=== PATIENT | male | born 1990 | race Caucasian/White ===

== ENCOUNTER 2019-09-11 13:07 | Outpatient (CLI) | payer OTHER ==
[2019-09-11] MEDS ORDERED: BUFFERED LIDOCAINE 10 ML SYRINGE ONE (13:13)
[2019-09-11] MEDS ORDERED: IOTHALAMATE MEGLUMINE 50 ML VIAL ONE (13:14)
[2019-09-11] MEDS ORDERED: GADOBUTROL 7.5 MMOL/7.5 ML VIAL ONE (13:14)
[2019-09-11] MEDS ORDERED: IOTHALAMATE MEGLUMINE 50 ML VIAL IVP ONE (14:30)
[2019-09-11] MEDS ORDERED: GADOBUTROL 7.5 MMOL/7.5 ML VIAL IVP ONE (14:30)
[2019-09-11] MEDS ORDERED: BUFFERED LIDOCAINE 10 ML SYRINGE IU ONE (14:30)
--- NOTE | 2019-09-11 14:56 | XRAY Report ---
Reason: RT SHOULDER RECURRENT DISLOCATION Procedure Date: 09/11/2019 Accession Number: [id number] / [id number] Procedure: FL - Arthrogram Needle Placement CPT Code: Final Report FULL RESULT: EXAM: Arthrogram Needle Placement DATE: 09/11/2019 2:37 PM CLINICAL HISTORY: RT SHOULDER RECURRENT DISLOCATION COMPARISON: None. TECHNIQUE: The risks, benefits, and alternatives of the procedure were discussed with the patient. All questions were answered. Written and verbal consent were obtained. The glenohumeral joint was marked under fluoroscopy and prepped and draped in a sterile manner. Local anesthesia was performed with 1% lidocaine. A 22-gauge needle was then inserted into the glenohumeral joint. 10 mL of a solution containing 25% 1% lidocaine, 25% iodinated contrast, and a 1:200 dilution of gadolinium contrast in sterile saline was then injected. The needle was removed without immediate complication. Other: None. Fluoroscopic exposure time: 16 seconds Number of fluoroscopic images: 5. FINDINGS: Bones and joints: No fracture or subluxation. Injection: Fluoroscopic images demonstrate needle placement and contrast in the glenohumeral joint. No contrast extravasation outside of the glenohumeral joint. IMPRESSION: Successful fluoroscopically guided arthrographic injection of the shoulder. RADIA
--- NOTE | 2019-09-14 10:38 | MRI Report ---
Reason: RT SHOULDER RECURRENT DISLOCATION Procedure Date: 09/11/2019 Accession Number: [id number] / [id number] Procedure: MRI - Arthrogram Shoulder RT CPT Code: Final Report FULL RESULT: EXAM: RIGHT SHOULDER MRI ARTHROGRAM WITH CONTRAST EXAM DATE: 09/11/2019 03:02 PM. CLINICAL HISTORY: Right shoulder recurrent dislocation. COMPARISON: None. TECHNIQUE: Multiplanar, multisequence T1-weighted and fluid-sensitive sequences of the shoulder after an arthrographic injection of dilute gadolinium, dictated under a separate exam. Other: None. FINDINGS: Rotator cuff: Ill-defined thickening and increased intrasubstance signal involving distal anterior fibers of the supraspinatus. Partial thickness contrast filling tear at the bursal surface and insertion of the anterior supraspinatus approximately 0.8 cm in the medial to lateral and anteroposterior dimensions. No definite full-thickness contrast filling defect is identified. However, there is contrast material within the subacromial subdeltoid bursa superiorly and anteriorly. Considerations include small occult full-thickness defect versus contrast introduction during the injection procedure. No rotator cuff muscle atrophy or fatty replacement. Long head biceps tendon: Intact, demonstrating normal course, signal and morphology. Labrum: Ill-defined tear with medial stripping at the inferior and anteroinferior labrum. Full contrast-filling tear at the posterior inferior labrum. Bones and articular surfaces: There is some deformity at the anteroinferior glenoid which may reflect chronic Bankart fracture. Large Hill-Sachs impaction fracture of the humeral head demonstrates a small amount of associated marrow edema. Mild cartilage thinning and fissuring over the lower aspect of the glenoid. Acromioclavicular joint: Unremarkable. Type I acromion. IMPRESSION: 1. Partial-thickness distal bursal surface and insertional tear of the anterior supraspinatus approximately 0.8 x 0.8 cm. 2. Although no discrete contrast-filling full-thickness tear is demonstrated, there is contrast in the subacromial subdeltoid bursa indicating either presence of an occult small full-thickness defect versus introduction of contrast during the injection procedure. 3. Ill-defined tear at the anterior and inferior labrum with probable small Bankart fracture. Small amount of associated marrow edema. 4. Large Hill-Sachs impaction fracture with a small amount of associated marrow edema. These findings may indicate subacute or late subacute fractures related to anterior dislocation. RADIA
== END 2019-09-11 13:08 | disposition home or self-care (01) ==
LOC: DI 13:07
PROVIDERS: ATTEND General Practice
DX: S42.291A Other displaced fracture of upper end of right humerus, initial encounter for closed fracture (principal); M75.101 Unspecified rotator cuff tear or rupture of right shoulder, not specified as traumatic; S43.491A Other sprain of right shoulder joint, initial encounter
CPT/HCPCS: 23350; 73222; 77002; A9585; Q9961

== ENCOUNTER 2019-12-07 08:26 | Day surgery (SDC) | payer OTHER ==
[~2019-12-07 08:26] MED LIST: BUPIVACAINE 0.25% PF 30 ML VIAL ONE; EPINEPHrine 1 MG/ML AMP ONE
[2019-12-07] MEDS ORDERED: KETOROLAC 30 MG/ML VIAL IVP ONE (08:27)
[2019-12-07] MEDS ORDERED: MIDAZOLAM 2 MG/2 ML VIAL IVP ONE (08:27)
[2019-12-07] MEDS ORDERED: fentaNYL 100 MCG/2 ML VIAL IVP ONE (08:27)
[2019-12-07] MEDS ORDERED: PROPOFOL 200 MG/20 ML VIAL IVP ONE (08:27)
[2019-12-07] MEDS ORDERED: ROCURONIUM 50 MG/5 ML VIAL IVP ONE (08:27)
[2019-12-07] MEDS ORDERED: LACTATED RINGERS 1,000 ML IV ONE ×2 (08:34→11:40)
[2019-12-07] MEDS ORDERED: cefTRIAXone 2 GM VIAL ONE (09:02)
--- NOTE | 2019-12-07 09:29 | ANESTHESIA ---
Pre-Anesthesia VS, & Labs - Diagnosis Right shoulder instability, rotator cuff repair - Procedure Right shoulder arthroscopy, rotator cuff repair Vital Signs: Temp Pulse Resp BP Pulse Ox 36.3 C L 77 16 141/90 H 95 12/07/19 08:40 12/07/19 08:40 12/07/19 08:40 12/07/19 08:40 12/07/19 08:40 Height 6 ft Weight (kg) 101.9 kg - NPO >8 hours Home Medications and Allergies Home Medications: Ambulatory Orders No Known Home Medications 11/08/19 No Known Home Medications 11/08/19 Allergies/Adverse Reactions: Allergies Allergy/AdvReac Type Severity Reaction Status Date / Time No Known Drug Allergies Allergy Verified 11/08/19 12:05 Anes History & Medical History - Anesthetic History Anesthesia Complications: reports: Other-see comment (Bad experience with ketamine sedation) Family history of Anesthesia Complications: Denies Family history of Malignant Hyperthermia: Denies - Medical History Cardiovascular: reports: None Pulmonary: reports: None, Other (Suspected sleep apnea) Gastrointestinal: reports: None Urinary: reports: None Neuro: reports: None Musculoskeletal: reports: None, Other Endocrine/Autoimmune: reports: None Blood Disorders: reports: None Skin: reports: None Smoking Status: Never smoker Psychosocial: reports: No issues indicated Exam General: Alert, Oriented x3, Cooperative Dental: WNL Mouth Opening: Greater than 4 Fingerbreadths Neck Mobility: Normal Mallampati classification: I Respiratory: Lungs clear Cardiovascular: Regular rate Neurological: Normal speech Mental/Cognitive Status: Alert/Oriented X3 Cognitive Status: Within normal limits Plan Anesthesia Type: General, Interscalene Block Consent for Procedure(s) Verified and Reviewed: Yes Code Status: Attempt Resuscitation ASA classification: 2-Mild systemic disease Is this case an emergency?: No
--- NOTE | 2019-12-07 11:26 | ANESTHESIA PROCEDURE NOTE ---
Diagnosis: Right Shoulder instability and rotator cuff tear Procedure: Right interscalene block Consent for Procedure(s) Verified and Reviewed: Yes Height and Weight: Height 6 ft Weight (kg) 101.9 kg Vital Signs: Temp Pulse Resp BP Pulse Ox 36.3 C L 92 16 141/90 H 98 12/07/19 08:40 12/07/19 10:14 12/07/19 08:40 12/07/19 08:40 12/07/19 10:14 Allergies No Known Drug Allergies Allergy (Verified 11/08/19 12:05) Requesting Provider: Soraida Location: right ASA classification: 2-Mild systemic disease Is this case an emergency?: No Anes. Monitoring and Equipment: Non-invasive BP, Pulse oximetery Anes. Procedure Start Time: 10:16 Anes. Procedure Stop Time: 10:25 Procedure Notes: Patient's right neck was prepped with chloroprep and time out completed. Total of 2mg versed and 100mcg of fentanyl given IV for patient comfort. The right brachial plexus was imaged using ultrasound and a 22G blunted stimiplex needle was directed towards the nerve sheath. After adequate needle placement was confirmed, a total of 30ml of 0.5% ropivicaine with 8mg of decadron was injected around the nerve bundle. Negative aspiration and negative paresthesia. Patient tolerated to procedure well. Full evaluation is pending. Images were saved to ultrasound hard drive.
[2019-12-07] MEDS ORDERED: HYDROmorphone 1 MG/ML CARPUJECT ONE (14:46)
[2019-12-07] MEDS ORDERED: oxyCODONE 5 MG TABLET PO PRN (14:51)
[2019-12-07] MEDS ORDERED: ONDANSETRON 4 MG/2 ML VIAL IVP PRN (14:51)
--- NOTE | 2019-12-07 15:06 | OPERATIVE REPORT ---
Operative Report - General Procedure Date: 12/07/19 - Procedure Note Estimated Blood Loss (mL): 25 - Other Other Information/Narrative: Primary Surgeon: LUCY LOFTON Secondary Surgeon: ROSANA FORD Anesthesia: General plus regional EBL: 25 ml IMPLANTS: Arthrex knotless suture tack x6 DETAILED PROCEDURE: Labral repair from 3:00 anterior to 7:30 posterior POSTOPERATIVE PLAN: 0-2 weeks-Sling at all times. Pendulum exercises 5 times per day. 2-6 weeks-Passive range of motion with the following limits: FF to 90, ER to neutral, abduction to 90 6-12 weeks-Active range of motion in all planes without limitation. Isometric rotator cuff strengthening is allowed 12-16 weeks-Gradually increase strengthening 16 weeks and beyond-Introduce dynamic activities EXAMINATION UNDER ANESTHESIA: ROM: Forward flexion 180 degrees, abduction 175 degrees, abduction external rotation 85 degrees, abduction internal rotation 85 degrees Anterior load and shift: 2+ Posterior load and shift: 0+ Inferior sulcus: Negative ARTHROSCOPIC FINDINGS: Rotator interval: Diffuse synovitis Biceps tendon & SLAP: Some mild injection of the biceps tendon, subtle peelback of the superior labrum, no degeneration, tendon otherwise appeared healthy, biceps anchor stable Subscapularis: Intact Rotator Cuff: Some undersurface fraying, particularly at the insertion of the infraspinatus however no tear appreciated HAGL: None Labrum: Anterior-inferior labral tear with retraction and scarring along the glenoid neck, this tear had propagated inferiorly and posteriorly. The interval was developed using a combination of high and low angled elevators, at the post erior extent of the tear, the tissue became firmly adherent to the glenoid Glenoid Cartilage: Overall normal-appearing with some anteroinferior wear. There was some anteroinferior glenoid bone loss, which was somewhat more significant than appreciated on the preoperative CT scan Humeral Head Cartilage: There was a large Hill-Sachs lesion. The arm was taken out of traction and put through range of motion while observing the glenohumeral joint. I was unable to get the Hill-Sachs lesion to engage with the glenoid at maximum positions of forward flexion external rotation or abduction. 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 He has had increasing instability of the right shoulder and does not trust it. Exam and MRI were consistent with anteroinferior instability. A preoperative CT scan was obtained to evaluate for glenoid bone loss as well as to measure the humeral head Hill-Sachs lesion. Nonoperative managment failed to resolve symptoms. The risks, benefits, and alternatives were discussed. Risks included pain, bleeding, infection, damage to nearby structures, lack of symptom relief, implant complications, stiffness, need for further surgeries, DVT, PE, stroke, and even . He signed a written consent form. PROCEDURE IN DETAIL: The patient was met in the preoperative holding on the day of the procedure. Operative extremity was signed. Consent was verified. He desired to proceed. Regional anesthesia was obtained in the preoperative area. They were brought to the operating room and surrendered to anesthesia. Once general anesthesia was obtained they were placed in the lateral decubitus position with the operative side up. An axillary roll was placed and all bony prominences were well-padded. They were then prepped and draped in the standard sterile fashion. A surgical timeout was held to confirm the patient procedure, identity, procedure, laterality, allergies, images, and antibiotics. All were in agreement we proceeded. Balanced suspension was applied and a standard diagnostic arthroscopy was performed utilizing posterior and anterior superior portal sites. The anterior superior portal site was created under direct visualization. The findings of the diagnostic arthroscopy can be found above. A mid glenoid portal was then created under direct visualization bordering the subscapularis tendon. I then used a combination of high and low angled elevators to develop the labral tear and release it from off the glenoid neck. I then used to the pineapple rasp to finalize my release and abraded the bone to a bleeding bed. A sucker shaver was placed in the interval to debride any loose tissue and further abrade the glenoid neck. Any loose cartilage was debrided at that time. I then established a percutaneous 7:00 portal utilizing the Arthrex system. I then sequentially placed anchors at the 6:30 and 7:30 positions. The first 7:30 anchor that I placed pulled out when tensioning and was replaced. The suture was passed using an appropriate 45 degree suture lasso. The labrum was secured using knotless technique. Appropriate tension was confirmed and the excess suture was cut. Using the same technique additional anchors were placed at 5:30, 4:45, 4:00 and 3:00 positions. Proper capsular tension was restored and a labral bumper was recreated. The portal sites were then closed with 3-0 Monocryl buried. Mastisol and Steri- Strips were applied. A sterile dressing and a sling was applied. He was awakened and transferred to the recovery room.
[2019-12-07] MEDS ORDERED: ONDANSETRON 4 MG/2 ML VIAL ONE (15:15)
[2019-12-07] MEDS ORDERED: oxyCODONE 5 MG TABLET ONE (16:20)
[2019-12-07 16:30] VITALS: BP 118/70
== END 2019-12-07 08:27 | disposition home or self-care (01) ==
LOC: SDS 08:26
PROVIDERS: ATTEND Orthopaedic Surgery
DX: S43.491A Other sprain of right shoulder joint, initial encounter (principal); M25.311 Other instability, right shoulder; M25.811 Other specified joint disorders, right shoulder